=== PATIENT | male | born 1945 | race Caucasian/White ===

== ENCOUNTER 2018-02-04 08:52 | Day surgery (SDC) | payer OTHER ==
[~2018-02-04 08:52] MED LIST: NS 1000 ML 1,000 ML ONE
[2018-02-04] MEDS ORDERED: TETRACAINE 0.5% OPHTH 1 DOSE AFFEYE ONE ×2 (09:09→11:32)
[2018-02-04] MEDS ORDERED: VIGAMOX 0.5% OPHTH 1 DOSE AFFEYE ONE ×6 (09:10→11:56)
[2018-02-04] MEDS ORDERED: PROLENSA OPHTH 1 DOSE AFFEYE ONE (09:28)
[2018-02-04] MEDS ORDERED: ALPHAGAN-P OPHTH 1 DOSE AFFEYE ONE (09:29)
[2018-02-04] MEDS ORDERED: CYCLOGYL 1% OPHTH 1 DOSE OP ONE ×3 (09:30→09:36)
[2018-02-04] MEDS ORDERED: AK-DILATE 2.5% OPHTH 1 DOSE OP ONE ×3 (09:31→09:37)
[2018-02-04] MEDS ORDERED: MYDRIACIL OPHTH 1 DOSE AFFEYE ONE ×3 (09:32→09:38)
[2018-02-04] MEDS ORDERED: BETADINE OPHTH SOLN 5% EACHEYE ONE (11:32)
[2018-02-04] MEDS ORDERED: DUOVISC IO ONE (11:37)
[2018-02-04] MEDS ORDERED: XYLOCAINE-MPF 1% IJ ONE (11:37)
[2018-02-04] MEDS ORDERED: ADRENALINE CHL INJ IJ ONE (11:37)
[2018-02-04] MEDS ORDERED: BSS OPHTH (PLAIN) 500 ML with VANCOMYCIN HCL 500 MG VIAL 25 MG, ADRENALINE CHL INJ 1 MG IR ONE ×3 (11:38)
[2018-02-04] MEDS ORDERED: DIPRIVAN VIAL ONE (13:55)
[2018-02-04] MEDS ORDERED: XYLOCAINE 1 % (PLAIN) ONE (13:55)
[2018-02-04] MEDS ORDERED: VERSED ONE (13:55)
[2018-02-04 16:36] VITALS: BP 115/71
== END 2018-02-04 12:20 | disposition home or self-care (01) ==
LOC: SURG1 08:52
PROVIDERS: ATTEND Ophthalmology
PROC: 08RK3JZ Replacement of Left Lens with Synthetic Substitute, Percutaneous Approach (ICD-10-PCS; principal; 2018-02-04 14:45)
PROC: 08DK3ZZ Extraction of Left Lens, Percutaneous Approach (ICD-10-PCS; principal; 2018-02-04 14:45)
DX: H25.12 Age-related nuclear cataract, left eye (principal); H25.012 Cortical age-related cataract, left eye
CPT/HCPCS: 99100; A4217; J0170; J2001; J2250; J3370; J3490

== ENCOUNTER 2018-02-18 06:49 | Day surgery (SDC) | payer OTHER ==
[2018-02-18] MEDS ORDERED: TETRACAINE 0.5% OPHTH 1 DOSE AFFEYE ONE ×2 (07:00→10:11)
[2018-02-18] MEDS ORDERED: VIGAMOX 0.5% OPHTH 1 DOSE AFFEYE ONE ×5 (07:05→10:44)
[2018-02-18] MEDS ORDERED: NS 500 ML IV 500 ML IV ONE (07:12)
[2018-02-18] MEDS ORDERED: PROLENSA OPHTH 1 DOSE AFFEYE ONE (07:16)
[2018-02-18] MEDS ORDERED: ALPHAGAN-P OPHTH 1 DOSE AFFEYE ONE (07:17)
[2018-02-18] MEDS ORDERED: AK-DILATE 2.5% OPHTH 1 DOSE OP ONE ×3 (07:18→07:20)
[2018-02-18] MEDS ORDERED: CYCLOGYL 1% OPHTH 1 DOSE OP ONE ×3 (07:18→07:20)
[2018-02-18] MEDS ORDERED: MYDRIACIL OPHTH 1 DOSE AFFEYE ONE ×3 (07:18→07:20)
[2018-02-18] MEDS ORDERED: TESSALON PERLES PO PRN (08:29)
[2018-02-18] MEDS ORDERED: DIPRIVAN VIAL ONE (09:36)
[2018-02-18] MEDS ORDERED: BETADINE OPHTH SOLN 5% EACHEYE ONE (10:11)
[2018-02-18] MEDS ORDERED: ADRENALINE CHL INJ IJ ONE ×2 (10:15→10:30)
[2018-02-18] MEDS ORDERED: XYLOCAINE-MPF 1% IJ ONE ×2 (10:15→10:30)
[2018-02-18] MEDS ORDERED: DUOVISC IO ONE ×2 (10:16→10:30)
[2018-02-18] MEDS ORDERED: BSS OPHTH (PLAIN) 500 ML with VANCOMYCIN HCL 500 MG VIAL 25 MG, ADRENALINE CHL INJ 1 MG IR ONE ×6 (10:17)
[2018-02-18 11:33] VITALS: BP 120/76
== END 2018-02-18 11:05 | disposition home or self-care (01) ==
LOC: SURG1 06:49
PROVIDERS: ATTEND Ophthalmology
PROC: 08DJ3ZZ Extraction of Right Lens, Percutaneous Approach (ICD-10-PCS; principal; 2018-02-18 09:45)
PROC: 08RJ3JZ Replacement of Right Lens with Synthetic Substitute, Percutaneous Approach (ICD-10-PCS; principal; 2018-02-18 09:45)
DX: H25.11 Age-related nuclear cataract, right eye (principal); H25.011 Cortical age-related cataract, right eye
CPT/HCPCS: 99100; A4217; J0170; J3370; J3490